=== PATIENT | male | born 1955 | race Caucasian/White ===

== ENCOUNTER 2017-08-19 05:24 | Day surgery (SDC) | payer OTHER ==
[~2017-08-19] VITALS: Ht 182.9 cm; Wt 107.9 kg
[~2017-08-19 05:24] MED LIST: CYCL-259 PO; OXYC5CAP2 PO; SERT100T5 PO
[2017-08-19] MEDS ORDERED: LACTATED RINGERS 1,000 ML IV SCH (06:14)
[2017-08-19] MEDS ORDERED: duloxetine PO (06:17)
[2017-08-19] MEDS ORDERED: rosuvastatin PO (06:17)
[2017-08-19] MEDS ORDERED: OXYC5CAP2 PO (06:17)
[2017-08-19 06:18] VITALS: BP 153/87
[2017-08-19] MEDS ORDERED: GABAPENTIN 300 MG CAPSULE ONE (07:03)
[2017-08-19] MEDS ORDERED: ONDANSETRON ODT 8 MG ONE (07:04)
[2017-08-19] MEDS ORDERED: FAMOTIDINE 20 MG TABLET ONE (07:04)
[2017-08-19] MEDS ORDERED: OXYcodone IR 5MG TABLET ONE (07:05)
[2017-08-19] MEDS ORDERED: ACETAMINOPHEN 500 MG TABLET ONE (07:06)
[2017-08-19] MEDS ORDERED: BUPIVACAINE/PF-EPI 0.5% 1:200K ONE (07:15)
[2017-08-19] MEDS ORDERED: THROMBIN 5,000 UNIT VIAL TP ONE (07:15)
[2017-08-19] MEDS ORDERED: MIDAZOLAM 1 MG/ML, 2ML ONE (07:15)
[2017-08-19] MEDS ORDERED: FENTANYL PF 100 MCG/2ML ONE (07:15)
[2017-08-19] MEDS ORDERED: BACITRACIN 50,000 UNIT ONE (07:15)
[2017-08-19] MEDS ORDERED: OXYcodone IR 5MG TABLET PO ONE (07:30)
[2017-08-19] MEDS ORDERED: FAMOTIDINE 20 MG TABLET PO ONE (07:30)
[2017-08-19] MEDS ORDERED: GABAPENTIN 300 MG CAPSULE PO ONE (07:30)
[2017-08-19] MEDS ORDERED: ONDANSETRON ODT 8 MG PO ONE (07:30)
[2017-08-19] MEDS ORDERED: ACETAMINOPHEN 500 MG TABLET PO ONE (07:30)
[2017-08-19] MEDS ORDERED: EPHEDRINE 50 MG/ML, 1ML ONE (07:38)
[2017-08-19] MEDS ORDERED: PROPOFOL 10 MG/ML, 20ML ONE (07:38)
[2017-08-19] MEDS ORDERED: SUCCINYLCHOLINE 20 MG/ML, 10ML ONE (07:38)
[2017-08-19] MEDS ORDERED: ROCURONIUM 10 MG/ML,10ML ONE (07:38)
[2017-08-19] MEDS ORDERED: GLYCOPYRROLATE 0.2MG/1ML, 5ML ONE (07:38)
[2017-08-19] MEDS ORDERED: PHENYLEPHRINE 10 MG/ML ONE (07:38)
[2017-08-19] MEDS ORDERED: DEXAMETHASONE 4 MG/ML, 1ML ONE (07:38)
[2017-08-19] MEDS ORDERED: CEFAZOLIN 1,000 MG ONE (07:38)
[2017-08-19] MEDS ORDERED: FENTANYL PF 100 MCG/2ML IV PRN (08:30)
[2017-08-19] MEDS ORDERED: ALBUTEROL SULFATE 2.5 MG/3 ML NPPB PRN (08:30)
[2017-08-19] MEDS ORDERED: METOPROLOL 1 MG/ML, 5ML IV PRN (08:30)
[2017-08-19] MEDS ORDERED: EPHEDRINE 50 MG/ML, 1ML IVPush PRN (08:30)
[2017-08-19] MEDS ORDERED: LABETALOL 5MG/ML, 20ML IV PRN (08:30)
[2017-08-19] MEDS ORDERED: MEPERIDINE/PF 25MG/0.5ML IVPush PRN (08:30)
[2017-08-19] MEDS ORDERED: HYDROcodone/APAP 7.5-325MG/15ML UDC PO PRN (08:30)
[2017-08-19] MEDS ORDERED: DIAZEPAM 5 MG/ML, 2ML IVPush PRN (08:30)
[2017-08-19] MEDS ORDERED: MIDAZOLAM 1 MG/ML, 2ML IV PRN (08:30)
[2017-08-19] MEDS ORDERED: OXYcodone 5 MG/5 ML ORAL.SOL UDC PO PRN (08:30)
[2017-08-19] MEDS ORDERED: MORPHINE SULFATE 4 MG/ML, 1ML IVPush PRN (08:30)
[2017-08-19] MEDS ORDERED: PROMETHAZINE 12.5 MG SUPP PR PRN (08:30)
[2017-08-19] MEDS ORDERED: ONDANSETRON 2MG/ML, 2ML IVPush PRN (08:30)
[2017-08-19] MEDS ORDERED: hydrALAzine 20 MG/ML, 1ML IV PRN (08:30)
== END 2017-08-19 13:52 ==
LOC: OUT 05:24
PROVIDERS: ATTEND Neurological Surgery
DX: M54.16 Radiculopathy, lumbar region (principal); M48.061 Spinal stenosis, lumbar region without neurogenic claudication
CPT/HCPCS: 63020; 63035; 72040; C1713; J0330; J0690; J1100; J2250; J2370; J2704; J3010; J7120; Q0162; J3490